=== PATIENT | male | born 1995 | race Caucasian/White ===

== ENCOUNTER 2017-01-15 19:06 | Emergency (ER) | payer OTHER ==
--- NOTE | 2017-01-15 19:47 | EDPHY ---
H & P Smoking Status: Current some day smoker Time Seen by Provider: 01/15/17 19:31 HPI/ROS: This is a 21-year-old male presented the emergency department reports falling off of his skateboard on Wednesday landing on his right wrist complaining of right wrist pain, with abrasion and red streaks up forearm. States skateboard came from underneath him and he tried to catch himself with his right wrist. Denies any other injury, patient states he got back up on the skateboarding continued with the evening. Denies any fever nausea vomiting tetanus 2016. REVIEW OF SYSTEMS: Constitutional: No fever no chills Respiratory: No cough or shortness of breath Cardiac: No chest pain Musculoskeletal: Right wrist pain, with redness to abrasion Skin: Abrasion to right wrist with red streak Neurological: No headache or dizziness (Fabienne Hunter) Physical Exam: CONSTITUTIONAL: patient appeared well nourished, non-ill appearing and normally developed. No acute distress. Vital signs as documented. HEENT: Normocephalic atraumatic NECK: Supple, no cervical spine vertebral tenderness FROM without pain RESP: Non-labored resp effort NEURO: AAOx3 ambulatory without gait disturbance EXTREMITIES: Right wrist pain with flexion-extension, pronation supination tenderness FROM without difficulty. Abrasion noted to anterior aspect of right wrist with some red streaks noted to form Positive cms intact SKIN: Warm and dry, right wrist abrasion noted to the anterior aspect of right wrist with red streaks LYMPH: No lymphadenopathy PSYCH: Normal affect, calm, no distress, acting appropriately (Fabienne Hunter) Constitutional: Initial Vital Signs Temperature (C) 36.9 C 01/15/17 19:12 Heart Rate 93 01/15/17 19:12 Respiratory Rate 16 01/15/17 19:12 Blood Pressure 143/69 H 01/15/17 19:12 O2 Sat (%) 100 01/15/17 19:12 O2 Delivery Mode Room Air Allergies/Adverse Reactions: No Known Allergies Allergy (Unverified 01/15/17 19:12) Home Medications: Medication Instructions Recorded Claritin 01/15/17 Clindamycin 150 mg PO Q8 10 Days 01/15/17 Medical Decision Making - Diagnostics Imaging: Imaging Impressions Wrist X-Ray 01/15/17 19:41 Impression: No evidence for acute fracture. No evidence for radiopaque foreign body. ED Course/Re-evaluation: Discussed plan of care: Right wrist x-ray, CBC, Chem 7 and IV clindamycin ( Fabienne Hunter) Other Provider: The patient was evaluated and managed by the Physician [place] Guide/ Nurse Practitioner. My co-signature indicates that I have reviewed this chart and I agree with the findings and plan of care as documented. I am the secondary supervising physician. (Kim Mora) - Data Points Laboratory Results: Laboratory Results 01/15/17 19:45 01/15/17 19:45 01/15/17 01/15/17 19:45 19:45 WBC 9.64 10^3/uL H 10^3/uL (3.80-9.50) RBC 5.24 10^6/uL 10^6/uL (4.40-6.38) Hgb 16.0 g/dL g/dL (13.7-17.5) Hct 45.7 % % (40.0-51.0) MCV 87.2 fL fL (81.5-99.8) MCH 30.5 pg pg (27.9-34.1) MCHC 35.0 g/dL g/dL (32.4-36.7) RDW 12.0 % % (11.5-15.2) Plt Count 260 10^3/uL 10^3/uL (150-400) MPV 9.6 fL fL (8.7-11.7) Neut % (Auto) 57.4 % % (39.3-74.2) Lymph % (Auto) 32.6 % % (15.0-45.0) [place] % (Auto) 5.4 % % (4.5-13.0) Eos % (Auto) 3.7 % % (0.6-7.6) Baso % (Auto) 0.7 % % (0.3-1.7) Nucleat RBC Rel Count 0.0 % % (0.0-0.2) Absolute Neuts (auto) 5.53 10^3/uL 10^3/uL (1.70-6.50) Absolute Lymphs (auto) 3.14 10^3/uL H 10^3/uL (1.00-3.00) Absolute Monos (auto) 0.52 10^3/uL 10^3/uL (0.30-0.80) Absolute Eos (auto) 0.36 10^3/uL 10^3/uL (0.03-0.40) Absolute Basos (auto) 0.07 10^3/uL 10^3/uL (0.02-0.10) Absolute Nucleated RBC 0.00 10^3/uL 10^3/uL (0-0.01) Immature Gran % 0.2 % % (0.0-1.1) Immature Gran # 0.02 10^3/uL 10^3/uL (0.00-0.10) Sodium 142 mEq/L mEq/L (134-144) Potassium 3.7 mEq/L mEq/L (3.5-5.2) Chloride 103 mEq/L mEq/L (97-110) Carbon Dioxide 26 mEq/l mEq/l (22-31) Anion Gap 13 mEq/L mEq/L (8-16) BUN 19 mg/dL mg/dL (7-23) Creatinine 1.0 mg/dL mg/dL (0.7-1.3) Estimated GFR > 60 Glucose 102 mg/dL H mg/dL (70-100) Calcium 9.7 mg/dL mg/dL (8.5-10.4) Medications Given: Discontinued Medications Clindamycin Phosphate/Dextrose (Cleocin 600 Mg (Premix)) 50 mls @ 100 mls/hr IV EDNOW ONE PRN Reason: Protocol Stop: 01/15/17 20:17 Last Admin: 01/15/17 20:08 Dose: 50 mls Departure - Departure Disposition: Home, Routine, Self-Care Clinical Impression: Right wrist sprain, Cellulitis Condition: Good Instructions: Cellulitis (ED) Additional Instructions: 1. The x-ray shows no acute fracture to the wrist 2. Keep area clean and dry, you can use topical triple antibiotic ointment on the area 3. Take all antibiotics as prescribed 4. Follow up with your primary care provider next week 5. Monitor for any worsening symptoms increasing redness worsening red streaks pus and fever if this should occur return to the emergency department Referrals: MATTIE BULL [Other] - As per Instructions Prescriptions: Clindamycin 150 mg PO Q8 10 Days
[2017-01-15] MEDS ORDERED: CLINDAMYCIN 600 MG/DEXTROSE 50 ML IV ONE (19:48)
[2017-01-15] MEDS ORDERED: CLINDAMYCIN 600 MG/DEXTROSE/50 ML BAG IV ONE (19:51)
[2017-01-15 19:55] LABS: % IMMATURE GRANULYOCYTES 0.2 % (0.0-1.1); ABSOLUTE IMMATURE GRANULOCYTES 0.02 10^3/uL (0.00-0.10); ADD DIFF? NO; ADD MORPH? NO; ADD SCAN? NO; ATYPICAL LYMPHOCYTE FLAG 0 (0-99); FRAGMENT RBC FLAG 0 (0-99); HEMATOCRIT 45.7 % (40.0-51.0); LEFT SHIFT FLG 0 (0-99); LIPEMIA HEMOLYSIS FLAG 90 (0-99); MEAN CELL HEMOGLOBIN 30.5 pg (27.9-34.1); MEAN CELL VOLUME 87.2 fL (81.5-99.8); MEAN PLATELET VOLUME 9.6 fL (8.7-11.7); PLATELET CLUMPS FLAG 10 (0-99); PLATELET COUNT 260 10^3/uL (150-400); RED BLOOD CELL COUNT 5.24 10^6/uL (4.40-6.38)
[2017-01-15 20:06] LABS: ANION GAP 13 mEq/L (8-16); CALCIUM 9.7 mg/dL (8.5-10.4); CARBON DIOXIDE 26 mEq/l (22-31); CHLORIDE 103 mEq/L (97-110); GLOMERULAR FILTRATION RATE > 60; GLUCOSE 102 mg/dL (70-100); POTASSIUM 3.7 mEq/L (3.5-5.2); SODIUM 142 mEq/L (134-144)
[2017-01-15 21:14] VITALS: BP 134/74; PULSE 71; RESP 20; TEMP 98.1; O2SAT 98
== END 2017-01-15 21:13 | disposition home or self-care (01) ==
DX: S63.501A Unspecified sprain of right wrist, initial encounter (principal); L03.113 Cellulitis of right upper limb; F17.200 Nicotine dependence, unspecified, uncomplicated; V00.131A Fall from skateboard, initial encounter; Y99.8 Other external cause status; Y93.51 Activity, roller skating (inline) and skateboarding
CPT/HCPCS: 96365